=== PATIENT | male | born 1965 | race Caucasian/White ===

== ENCOUNTER 2018-06-23 15:24 | Emergency (ER) | payer MEDICAID ==
[~2018-06-23] VITALS: Ht 175.3 cm; Wt 90.5 kg
[2018-06-23] MEDS ORDERED: METF-960 PO (15:37)
[2018-06-23] MEDS ORDERED: ENAL20 PO (15:37)
[2018-06-23 15:39] LABS: GLUCOSE,POINT OF CARE 147 MG/DL (70-110)
[2018-06-23] MEDS ORDERED: KETOROLAC TROMETHAMINE 30 MG/ML VIAL IM ONE (17:00)
[2018-06-23 18:00] VITALS: BP 143/94
== END 2018-06-23 18:02 | disposition home or self-care (01) ==
LOC: EMS 15:29
DX: M77.9 Enthesopathy, unspecified (principal); E11.9 Type 2 diabetes mellitus without complications; I10 Essential (primary) hypertension; Z79.84 Long term (current) use of oral hypoglycemic drugs
CPT/HCPCS: 29105; 82962; 93005; 96372; 99283; J1885